=== PATIENT | female | born 1965 | race American Indian/Alaskan Native ===

== ENCOUNTER 2016-05-09 14:33 | Emergency (ER) | payer OTHER ==
[2016-05-09 14:46] VITALS: BP 110/72
[2016-05-09 15:30] LABS: Basophils % (Auto) 0.4 % (0.0-1.8); Eosinophils % (Auto) 0.4 % (0.0-4.3); Hematocrit 39.1 % (30.3-42.9); Hemoglobin 12.9 gm/dl (10.1-14.3); Mean Corpuscular HGB Conc 33 % (30-34); Mean Corpuscular Hemoglobin 31 pg (28-32); Mean Corpuscular Volume 93 fl (79-97); Platelet Count 256 K/mm3 (140-440); White Blood Count 7.5 K/mm3 (4.5-11.0)
[2016-05-09 15:44] LABS: Anion Gap 18 mmol/L; BUN/Creatinine Ratio 12.85; Blood Urea Nitrogen 9 mg/dL (7-17); Calcium 9.2 mg/dL (8.4-10.2); Carbon Dioxide 27 mmol/L (22-30); Chloride 101.3 mmol/L (98-107); Glucose 97 mg/dL (65-100); Sodium 142 mmol/L (137-145)
--- NOTE | 2016-05-10 07:19 | ED Elopement Review ---
ED Pt Elopement review - Results review Lab results: Laboratory Tests 05/09/16 05/09/16 05/09/16 14:39 15:08 15:08 WBC RBC Hgb Hct MCV MCH MCHC RDW Plt Count Lymph % (Auto) [place] % (Auto) Eos % (Auto) Baso % (Auto) Lymph # [place] # Eos # Baso # Seg Neutrophils % Seg Neutrophils # Sodium 142 Potassium 4.0 Chloride 101.3 Carbon Dioxide 27 Anion Gap 18 BUN 9 Creatinine 0.7 Estimated GFR > 60 BUN/Creatinine Ratio 12.85 Glucose 97 POC Glucose 104 Calcium 9.2 Plasma/Serum Alcohol < 0.01 05/09/16 15:08 WBC 7.5 RBC 4.20 Hgb 12.9 Hct 39.1 MCV 93 MCH 31 MCHC 33 RDW 13.0 L Plt Count 256 Lymph % (Auto) 27.2 [place] % (Auto) 10.0 H Eos % (Auto) 0.4 Baso % (Auto) 0.4 Lymph # 2.0 [place] # 0.7 Eos # 0.0 Baso # 0.0 Seg Neutrophils % 62.0 Seg Neutrophils # 4.6 Sodium Potassium Chloride Carbon Dioxide Anion Gap BUN Creatinine Estimated GFR BUN/Creatinine Ratio Glucose POC Glucose Calcium Plasma/Serum Alcohol - Call Back decision Pt Call Back Decision: No action required
== END 2016-05-09 22:42 | disposition left against medical advice (07) ==
LOC: ED 14:33
DX: R47.81 Slurred speech (principal); Z79.899 Other long term (current) drug therapy; Z53.21 Procedure and treatment not carried out due to patient leaving prior to being seen by health care provider
CPT/HCPCS: 36415; 80048; 82962; 85025; 93005; 93010; G0480; 80320